=== PATIENT | male | born 1995 | race Caucasian/White ===

== ENCOUNTER 2018-12-02 11:28 | Emergency (ER) | payer OTHER ==
[2018-12-02 11:33] VITALS: BP 103/64
[2018-12-02] MEDS ORDERED: OFLOXACIN 0.3% SOLN PREPACK OPHT.BTL TAKEHOME ONE (11:35)
[2018-12-02] MEDS ORDERED: PROPARACAINE 0.5% 15 ML OPHT DROP OP ONE (11:35)
--- NOTE | 2018-12-02 11:36 | EDPHY ---
H & P Stated Complaint: R eye pain, left contact lenses in for 1 month Source: Patient Exam Limitations: No limitations - Personal History Current Tetanus/Diphtheria Vaccine: Yes Current Tetanus Diphtheria and Acellular Pertussis (TDAP): Yes - Medical/Surgical History Hx Asthma: No Hx Chronic Respiratory Disease: No Hx Diabetes: No Hx Cardiac Disease: No Hx Renal Disease: No Hx Cirrhosis: No Hx Alcoholism: No Hx HIV/AIDS: No Hx Splenectomy or Spleen Trauma: No - Social History Smoking Status: Current some day smoker Time Seen by Provider: 12/02/18 11:35 HPI/ROS: HPI: This is a 23-year-old male who presents with Chief Complaint: R eye pain, left contact lenses in for 1 month Location: Right eye Quality: Pain Duration: 1-2 hours Signs and Symptoms: no fever, no nausea, no vomiting, no photophobia, no noise sensitivity, no neck stiffness, no ear pain, no tinnitus, no nasal congestion, no sinus pressure, no weakness, no radiation, no aura, + visual blurring, + eye tearing, + foreign body sensation Timing: Rapid onset, constant Severity: 02/04 Context: Patient reports that he wears his contacts for months at a time and woke up this morning with right eye foreign body sensation and scratchy type pain. He immediately took his contact out and he still felt like something was in his eye. He reports that he has visual blurring due to his eye tearing but no actual eye pain or loss of vision. Tetanus is up-to-date. Last eye exam within 1 year. Modifying Factors: Took contact lens out Comment: ROS: A comprehensive 10 system review of systems is otherwise negative aside from elements mentioned in the history of present illness. MEDICAL/SURGICAL/SOCIAL HISTORY: Medical history: Generally healthy. Does not take any regular medications. Surgical history: Denies Social history: Student at [employer]. Admits to social alcohol and marijuana use. Current every day tobacco user. Family history noncontributory. General appearance: Anxious, well-developed, well-nourished adult white male, nontoxic in appearance Visual Acuity: noted from Nurse's notes. Pupils: equal round and reactive to light. EOMI. Lids: no edema or swelling Skin: no proptosis, no periorbital erythema or swelling, no vesicles Conjunctivae: not injected, no discharge Cornea: exam with fluorescein shows small area of uptake Anterior chamber: normal, no hyphema or hypopyon Neuro: Cranial nerves 2-12 grossly intact. Speech clear. (Loraine Thrasher) Constitutional: Initial Vital Signs Temperature (C) 37 C 12/02/18 11:30 Heart Rate 73 12/02/18 11:30 Respiratory Rate 14 12/02/18 11:30 Blood Pressure 103/64 12/02/18 11:30 O2 Sat (%) 98 12/02/18 11:30 O2 Delivery Mode Room Air Allergies/Adverse Reactions: No Known Allergies Allergy (Unverified 12/02/18 11:30) Home Medications: Medication Instructions Recorded Ketorolac 0.5% [Acular 0.5% Opht 1 drops RTEYE Q8 3 Days #1 opht.btl 12/02/18 Drops (*)] Medical Decision Making ED Course/Re-evaluation: Vital signs reviewed and stable upon arrival. Tetanus Up-to-date. Fluorescein shows corneal defect consistent with corneal abrasion Given ofloxacin due to contact lens wear Ophthalmology follow-up No signs of periorbital cellulitis/ulceration This patient was seen under the supervision of my secondary supervising physician. I evaluated and cared for this patient independently. (Loraine Thrasher) I did not see this patient while he was in the emergency department. However his care was discussed with the PA while the patient was in the department. I agree with treatment plan and management (Alfredo Ma) Differential Diagnosis: Differential diagnosis includes but is not limited to corneal abrasion, corneal ulcer, anterior uveitis, conjunctivitis, episcleritis, scleritis, orbital trauma , (Loraine Thrasher) - Data Points Medications Given: Discontinued Medications Ofloxacin (Ocuflox 0.3% Opht Drops Prepack) 1 btl TAKEHOME EDNOW ONE Stop: 12/02/18 11:36 Last Admin: 12/02/18 12:05 Dose: 1 btl Proparacaine HCl (Alcaine 0.5%) 1 drops OP EDNOW ONE Stop: 12/02/18 11:36 Last Admin: 12/02/18 11:42 Dose: Not Given Departure - Departure Disposition: Home, Routine, Self-Care Clinical Impression: Corneal abrasion of right eye due to contact lens Condition: Good Instructions: Ofloxacin (Into the eye), Corneal Abrasion (ED) Additional Instructions: Instill Ofloxacin 1 to 2 drops in affected eye(s) every 2 to 4 hours for the first 2 days, then instill 1 to 2 drops 4 times daily for an additional 5 days. Apply Ketorolac 1 drop every 8 hr while awake x 3 days for as needed for ocular pain. Please avoid using your hands to touch your eyes. Wash your hands frequently with mild soap and water. Apply cool compresses for 15-20 minutes at a time several times per day for the next 1-2 days. Do not wear contact lenses until seen by Ophthalmology and told that it is safe to do so. Follow up with ophthalmology in 5-7 days if no improvement in symptoms. Eye Complaint: Return to the Emergency Department for any increase in eye pain, redness, swelling, discharge or any worsening of your vision. Referrals: [facility] [Provider Group] - As per Instructions Prescriptions: Ketorolac 0.5% [Acular 0.5% Opht Drops (*)] 1 drops RTEYE Q8 3 Days #1 opht.btl
[2018-12-02] MEDS ORDERED: FLUORESCEIN SODIUM 1 MG STRIP OP ONE (11:40)
== END 2018-12-02 12:03 | disposition home or self-care (01) ==
DX: S05.01XA Injury of conjunctiva and corneal abrasion without foreign body, right eye, initial encounter (principal)